=== PATIENT | male | born 1975 | race Caucasian/White ===

== ENCOUNTER 2018-11-20 09:30 | Emergency (ER) | payer OTHER ==
[~2018-11-20] VITALS: Ht 175.3 cm; Wt 86.0 kg
[2018-11-20 09:53] VITALS: BP 135/63
== END 2018-11-20 10:38 | disposition home or self-care (01) ==
LOC: ER 10:05
DX: H01.001 Unspecified blepharitis right upper eyelid (principal); F17.200 Nicotine dependence, unspecified, uncomplicated
CPT/HCPCS: 99283